=== PATIENT | male | born 1950 | race African-American/Black ===

== ENCOUNTER 2019-05-03 05:58 | Inpatient (IN) | payer MEDICARE, MEDICAID ==
[~2019-05-03] VITALS: Ht 182.9 cm; Wt 59.1 kg
[2019-05-03 06:00] VITALS: BP 101/60
[2019-05-03] MEDS ORDERED: cefTRIAXone 1 GM in NS 55 ML IVPB ONE (06:00)
[2019-05-03] MEDS ORDERED: Azithromycin 500 MG in NS 275 ML IV ONE (06:00)
[2019-05-03] MEDS ORDERED: Dexamethasone 4mg/ml vial IVP ONE (06:00)
--- NOTE | 2019-05-03 06:00 | NUR ---
ED Nurse Note: PT AAOX4, VSS, NO ACUTE DISTRESS. PT ARRIVED WITH RA 26 D/T SOB FROM HOME. PT IS ON 2L NC.
--- NOTE | 2019-05-03 06:04 | Emergency Room Report ---
History of Present Illness General Chief Complaint: Dyspnea/Respdistress Source: Patient Present Illness HPI 68-year-old male history of COPD, cancer of the right lung history of smoking, presents with shortness of breath that started about a week ago, patient endorses chest tightness cough, congestion, he has a history of pneumonia, aggravated by URI alleviated by the roots of steroids, severity is moderate, constant, patient presents via EMS. Patient has 2 L nasal cannula at home no changes but patient endorses a productive cough and subjective fever/chills Allergies: Coded Allergies: No Known Allergies (Unverified , 05/03/19) Patient History Past Medical History: see triage record Reviewed Nursing Documentation: PMH: Agreed; PSxH: Agreed Nursing Documentation-PMH Past Medical History: No History, Except For Hx Asthma: Yes - PNA Review of Systems All Other Systems: negative except mentioned in HPI Physical Exam Vital Signs Date Time Temp Pulse Resp B/P (MAP) Pulse Ox O2 Delivery O2 Flow Rate FiO2 05/03/19 05:52 97.9 52 16 106/59 (75) 99 Nasal Cannula 2.0 Sp02 EP Interpretation: reviewed, normal General Appearance: alert, cachetic, Chronically Ill Head: normocephalic, atraumatic Eyes: bilateral eye PERRL, bilateral eye EOMI ENT: uvula midline, moist mucus membranes Neck: supple, thyroid normal, supple/symm/no masses Respiratory: decreased breath sounds, accessory muscle use, wheezing Cardiovascular #1: normal peripheral pulses, regular rate, rhythm, no edema, no gallop, no murmur Gastrointestinal: non tender, soft, no guarding, no rebound Musculoskeletal: normal inspection Neurologic: alert, oriented x3 Psychiatric: mood/affect normal Skin: no rash, warm/dry Medical Decision Making Diagnostic Impression: Primary Impression: Dyspnea Qualified Codes: R06.00 - Dyspnea, unspecified Additional Impression: COPD exacerbation ER Course 68-year-old male history of COPD, right lobe with lung cancer presents with shortness of breath, cough, dyspnea concerning for possible COPD exacerbation versus obstructive pneumonia versus ACS Labs, EKG, chest x-ray, will start duo nebs, will start preemptive antibiotics, steroids Patient signed out to Dr. Cheng 6:30AM Laboratory Tests Test 05/03/19 06:00 05/03/19 06:11 White Blood Count 5.0 K/UL (4.8-10.8) Red Blood Count 5.15 M/UL (4.70-6.10) Hemoglobin 16.1 G/DL (14.2-18.0) Hematocrit 49.5 % (42.0-52.0) Mean Corpuscular Volume 96 FL (80-99) Mean Corpuscular Hemoglobin 31.2 PG (27.0-31.0) H Mean Corpuscular Hemoglobin Concent 32.5 G/DL (32.0-36.0) Red Cell Distribution Width 14.9 % (11.6-14.8) H Platelet Count 129 K/UL (150-450) L Mean Platelet Volume 5.7 FL (6.5-10.1) L Neutrophils (%) (Auto) 53.5 % (45.0-75.0) Lymphocytes (%) (Auto) 22.0 % (20.0-45.0) Monocytes (%) (Auto) 17.2 % (1.0-10.0) H Eosinophils (%) (Auto) 6.1 % (0.0-3.0) H Basophils (%) (Auto) 1.2 % (0.0-2.0) Sodium Level 142 MMOL/L (136-145) Potassium Level 4.0 MMOL/L (3.5-5.1) Chloride Level 106 MMOL/L (98-107) Carbon Dioxide Level 29 MMOL/L (21-32) Anion Gap 7 mmol/L (5-15) Blood Urea Nitrogen 14 mg/dL (7-18) Creatinine 1.1 MG/DL (0.55-1.30) Estimate Glomerular Filtration Rate > 60 mL/min (>60) Glucose Level 87 MG/DL (74-106) Lactic Acid Level 1.00 mmol/L (0.4-2.0) Calcium Level 9.0 MG/DL (8.5-10.1) Phosphorus Level 3.5 MG/DL (2.5-4.9) Magnesium Level 1.8 MG/DL (1.8-2.4) Total Bilirubin 0.7 MG/DL (0.2-1.0) Aspartate Amino Transferase (AST) 19 U/L (15-37) Alanine Aminotransferase (ALT) 21 U/L (12-78) Alkaline Phosphatase 70 U/L (46-116) Creatine Kinase MB 0.9 NG/ML (0.0-3.6) Troponin I 0.000 ng/mL (0.000-0.056) Pro-B-Type Natriuretic Peptide 71 pg/mL (0-125) Total Protein 7.3 G/DL (6.4-8.2) Albumin 3.4 G/DL (3.4-5.0) Globulin 3.9 g/dL Albumin/Globulin Ratio 0.9 (1.0-2.7) L Lipase 289 U/L (73-393) Arterial Blood pH 7.419 (7.350-7.450) Arterial Blood Partial Pressure CO2 35.8 mmHg (35.0-45.0) Arterial Blood Partial Pressure O2 80.2 mmHg (75.0-100.0) Arterial Blood HCO3 22.6 mmol/L (22.0-26.0) Arterial Blood Oxygen Saturation 95.7 % (95-100) Arterial Blood Base Excess -1.2 (-2-2) Keven Test Positive EKG Diagnostic Results EKG Time: 05:54 EP Interpretation: Sinus bradycardia, rate 56, QTc 128, no acute ST elevations , right axis dev Rhythm Strip Diag. Results Rhythm Strip Time: 06:03 EP Interpretation: yes Rate: 51 Rhythm: other - Sinus bradycardia Chest X-Ray Diagnostic Results Chest X-Ray Diagnostic Results : Chest X-Ray Ordered: Yes # of Views/Limited/Complete: 1 View Indication: Shortness of Breath EP Interpretation: Yes Interpretation: no consolidation, no effusion, no pneumothorax, no acute cardiopulmonary disease Impression: No acute disease Electronically Signed by: Willie Simmons MD Last Vital Signs Date Time Temp Pulse Resp B/P (MAP) Pulse Ox O2 Delivery O2 Flow Rate FiO2 05/03/19 05:52 97.9 52 16 106/59 (75) 99 Nasal Cannula 2.0 Disposition: ADMITTED INPATIENT Condition: Stable Willie Simmons MD May 03, 2019 06:04
--- NOTE | 2019-05-03 06:15 | NUR ---
ED Nurse Note: BLOOD WORK SET DOWN.
[2019-05-03 06:35] LABS: BASOPHILS % (AUTO) 1.2 % (0.0-2.0); EOSINOPHILS % (AUTO) 6.1 % (0.0-3.0); HEMATOCRIT 49.5 % (42.0-52.0); HEMOGLOBIN 16.1 G/DL (14.2-18.0); MEAN CORPUSCULAR VOLUME 96 FL (80-99); MONOCYTES % (AUTO) 17.2 % (1.0-10.0); NEUTROPHILS % (AUTO) 53.5 % (45.0-75.0); PLATELET COUNT 129 K/UL (150-450); RED BLOOD COUNT 5.15 M/UL (4.70-6.10); RED CELL DISTRIBUTION WIDTH 14.9 % (11.6-14.8)
[2019-05-03 06:40] LABS: ANION GAP 7 mmol/L (5-15); BLOOD UREA NITROGEN 14 mg/dL (7-18); CARBON DIOXIDE 29 MMOL/L (21-32); CHLORIDE 106 MMOL/L (98-107); CREATININE 1.1 MG/DL (0.55-1.30); SODIUM 142 MMOL/L (136-145)
--- NOTE | 2019-05-03 06:42 | NUR ---
ED Nurse Note: PT WITH RT.
[2019-05-03] MEDS: Ipratropium 0.02% Inh Soln 2.5ml UD HHN SCH ×3 (06:44→06:49)
[2019-05-03] MEDS: Albuterol ud Inhalation HHN SCH ×2 (06:48→06:49)
[2019-05-03 06:52] LABS: ALANINE AMINOTRANSFERASE 21 U/L (12-78); ALBUMIN 3.4 G/DL (3.4-5.0); ALBUMIN/GLOBULIN RATIO 0.9 (1.0-2.7); ALKALINE PHOSPHATASE 70 U/L (46-116); ASPARTATE AMINO TRANSFERASE 19 U/L (15-37); BILIRUBIN,TOTAL 0.7 MG/DL (0.2-1.0); CKMB 0.9 NG/ML (0.0-3.6); PHOSPHORUS 3.5 MG/DL (2.5-4.9)
--- NOTE | 2019-05-03 07:05 | NUR ---
HAND-OFF: Report given to TIKA FORD. PT STABLE AND ON BREATHING TX.
[2019-05-03 07:24] VITALS: BP 136/76
--- NOTE | 2019-05-03 07:26 | NUR ---
ED Nurse Note: received pt getting breathing treatment in bed. vital signs stable as documented. no acute distress noted at this time.
[2019-05-03] MEDS ORDERED: NKM (07:35)
--- NOTE | 2019-05-03 07:50 | NUR ---
ED Nurse Note: report given to Min, RN
[2019-05-03 08:00] VITALS: BP 132/72
--- NOTE | 2019-05-03 08:00 | NUR ---
ED Nurse Note: pt left unit with 2 RNs in stable condition.
--- NOTE | 2019-05-03 08:00 | NUR ---
NURSE NOTES: Received report from Jodee VILLELA. Pt transferred from ED via [facility] with 2LPM 02. No SOB noted. IV site RAC 18G SL patent and asymptomatic. Able to walk without assistance. Patient came with his own O2 tank. No c.o pain. ekg monitor applied. AOX4. Will continue to plan of care.
[2019-05-03] MEDS ORDERED: VENTOLIN HFA18 GM INH (08:15)
--- NOTE | 2019-05-03 08:40 | History and Physical ---
History of Present Illness General Date patient seen: May 03, 2019 Reason for Hospitalization: Dyspnea/Respdistress Present Illness HPI 68 year old male, poor historian with history of COPD on home oxygen , cancer of the right lung, previous history of smoking, presents with shortness of breath that started about a week ago, patient endorses chest tightness cough, congestion, he has a history of pneumonia and says that's hoe his lung CA was discovered. He had recent radiation for lung CA. He endorses a productive cough of green phlegm and subjective fever/chills. No sick contacts. No recent travel. Past Medical History: as above Past surgical history: None Social history: Unemployed, Previous heroin use, on Methadone, goes to [employer]. Occasional etoh, denies smoking cigarettes now. Uses cocaine Family history: Everyone , says parents had cancer but doesn't want to talk about it Allergies: Coded Allergies: No Known Allergies (Unverified , 05/03/19) Medication History Scheduled Methadone Hcl* (Methadone*), 60 MG ORAL DAILY, (Reported) Scheduled PRN Albuterol Sulfate (Ventolin Hfa), 1 PUFF INH EVERY 6 HOURS PRN for Shortness of Breath, (Reported) Discontinued Medications No Known Medications* (NKM - No Known Medications*), 0 ., (Reported) Discontinued Reason: Pt had allergic rxn Patient History Healthcare decision maker Resuscitation status Advanced Directive on File Review of Systems Constitutional: Reports: no symptoms, see HPI, sweats, malaise, weakness, other Eye: Denies: no symptoms, see HPI, eye pain, blurred vision, tearing, double vision, nose pain, nose congestion, acuity changes, discharge, other ENT: Denies: no symptoms, see HPI, ear pain, ear discharge, nose pain, nose congestion, throat pain, throat swelling, mouth pain, hearing loss, nasal discharge, other Respiratory: Reports: no symptoms, see HPI, orthopnea, stridor, MAI, sputum, other Cardiovascular: Denies: no symptoms, see HPI, chest pain, edema, palpitations, syncope, PND, other Gastrointestinal: Denies: no symptoms, see HPI, abdominal pain, constipation, diarrhea, nausea, vomiting, melena, hematemesis, other Genitourinary: Denies: no symptoms, see HPI, discharge, dysuria, frequency, hematuria, pain, retention, incontinence, urgency, vag bleed/dc, other Musculoskeletal: Denies: no symptoms, see HPI, back pain, gout, joint pain, joint swelling, muscle pain, muscle stiffness, other Skin: Denies: no symptoms, see HPI, rash, change in color, change in hair/nails , dryness, lesions, other Psychiatric: Denies: no symptoms, see HPI, prior hx, anxiety, depressed feelings, emotional problems, SI, HI, hallucinations, other Neurological: Denies: no symptoms, see HPI, headache, numbness, paresthesia, seizure, tingling, tremors, focal weakness, syncope, dizziness, other Endocrine: Denies: no symptoms, see HPI, excessive sweating, flushing, intolerance to temperature, increased thirst, increased urine, unexplained weight loss, other Hematologic/Lymphatic: Denies: no symptoms, see HPI, anemia, blood clots, easy bleeding, easy bruising, swollen glands, diathesis, other Physical Exam Physical Exam Narrative General Appearance: alert, cachetic, Chronically Ill, asking for methadone Head: normocephalic, atraumatic Eyes: bilateral eye PERRL, bilateral eye EOMI ENT: uvula midline, moist mucus membranes Neck: supple, thyroid normal, supple/symm/no masses Respiratory: decreased breath sounds, accessory muscle use, wheezing Cardiovascular: normal peripheral pulses, regular rate, rhythm, no edema, no gallop, no murmur Gastrointestinal: non tender, soft, no guarding, no rebound Musculoskeletal: normal inspection Neurologic: alert, oriented x3, grossly normal Psychiatric: mood/affect normal Skin: no rash, warm/dry Last 24 Hour Vital Signs Date Time Temp Pulse Resp B/P (MAP) Pulse Ox O2 Delivery O2 Flow Rate FiO2 05/03/19 08:00 98.0 68 16 126/70 99 Nasal Cannula 2.0 05/03/19 07:38 49 20 100 Nasal Cannula 2.0 44 19 100 05/03/19 07:24 98.0 68 16 136/76 99 Nasal Cannula 2.0 05/03/19 06:00 49 16 Nasal Cannula 2.0 05/03/19 06:00 98.0 16 101/60 99 Nasal Cannula 2.0 05/03/19 05:52 97.9 52 16 106/59 (75) 99 Nasal Cannula 2.0 Intake and Output 05/02/19 05/03/19 19:00 07:00 Intake Total 192.5 ml Balance 192.5 ml IV Total 192.5 ml Laboratory Tests Test 05/03/19 06:00 05/03/19 06:11 White Blood Count 5.0 K/UL (4.8-10.8) Red Blood Count 5.15 M/UL (4.70-6.10) Hemoglobin 16.1 G/DL (14.2-18.0) Hematocrit 49.5 % (42.0-52.0) Mean Corpuscular Volume 96 FL (80-99) Mean Corpuscular Hemoglobin 31.2 PG (27.0-31.0) H Mean Corpuscular Hemoglobin Concent 32.5 G/DL (32.0-36.0) Red Cell Distribution Width 14.9 % (11.6-14.8) H Platelet Count 129 K/UL (150-450) L Mean Platelet Volume 5.7 FL (6.5-10.1) L Neutrophils (%) (Auto) 53.5 % (45.0-75.0) Lymphocytes (%) (Auto) 22.0 % (20.0-45.0) Monocytes (%) (Auto) 17.2 % (1.0-10.0) H Eosinophils (%) (Auto) 6.1 % (0.0-3.0) H Basophils (%) (Auto) 1.2 % (0.0-2.0) Sodium Level 142 MMOL/L (136-145) Potassium Level 4.0 MMOL/L (3.5-5.1) Chloride Level 106 MMOL/L (98-107) Carbon Dioxide Level 29 MMOL/L (21-32) Anion Gap 7 mmol/L (5-15) Blood Urea Nitrogen 14 mg/dL (7-18) Creatinine 1.1 MG/DL (0.55-1.30) Estimat Glomerular Filtration Rate > 60 mL/min (>60) Glucose Level 87 MG/DL (74-106) Lactic Acid Level 1.00 mmol/L (0.4-2.0) Calcium Level 9.0 MG/DL (8.5-10.1) Phosphorus Level 3.5 MG/DL (2.5-4.9) Magnesium Level 1.8 MG/DL (1.8-2.4) Total Bilirubin 0.7 MG/DL (0.2-1.0) Aspartate Amino Transf (AST/SGOT) 19 U/L (15-37) Alanine Aminotransferase (ALT/SGPT) 21 U/L (12-78) Alkaline Phosphatase 70 U/L (46-116) Creatine Kinase MB 0.9 NG/ML (0.0-3.6) Troponin I 0.000 ng/mL (0.000-0.056) Pro-B-Type Natriuretic Peptide 71 pg/mL (0-125) Total Protein 7.3 G/DL (6.4-8.2) Albumin 3.4 G/DL (3.4-5.0) Globulin 3.9 g/dL Albumin/Globulin Ratio 0.9 (1.0-2.7) L Lipase 289 U/L (73-393) Arterial Blood pH 7.419 (7.350-7.450) Arterial Blood Partial Pressure CO2 35.8 mmHg (35.0-45.0) Arterial Blood Partial Pressure O2 80.2 mmHg (75.0-100.0) Arterial Blood HCO3 22.6 mmol/L (22.0-26.0) Arterial Blood Oxygen Saturation 95.7 % (95-100) Arterial Blood Base Excess -1.2 (-2-2) Keven Test Positive Microbiology Date/Time Source Procedure Growth Status 05/03/19 06:45 Nasal Nares - Final Complete 05/03/19 06:45 Nasal Nares - Final Complete Height (Feet): 6 Weight (Pounds): 140 Medications Current Medications Medications (Trade) Dose Ordered Sig/Katherine Route PRN Reason Start Time Stop Time Status Last Admin Dose Admin Albuterol/ Ipratropium (Albuterol/ Ipratropium) 3 ml Q4HRT HHN 05/03/19 11:00 05/08/19 10:59 Azithromycin 500 mg/Dextrose 275 ml @ 275 mls/hr Q24HRS IV 05/04/19 06:00 05/10/19 06:59 Ceftriaxone Sodium 1 gm/ Dextrose 55 ml @ 110 mls/hr Q24H IVPB 05/03/19 08:30 05/10/19 08:29 UNV Heparin Sodium (Porcine) (Heparin 5000 units/ml) 5,000 units EVERY 12 HOURS SUBQ 05/03/19 09:00 06/02/19 08:59 UNV Methylprednisolone Sodium Succinate (Solu-MEDROL) 60 mg EVERY 6 HOURS IVP 05/03/19 12:00 06/02/19 11:59 Objective Narrative ECG tracing personally reviewed by me: Sinus bradycardia, rate 56, QTc 128, no acute ST elevations, right axis deviation CXR: COPD, no acute pathology Assessment/Plan Problem List: (1) COPD exacerbation ICD Codes: J44.1 - Chronic obstructive pulmonary disease with (acute) exacerbation SNOMED: 268535995 (2) Dyspnea ICD Codes: R06.00 - Dyspnea, unspecified SNOMED: 007871569 Qualifiers: Qualified Codes: R06.00 - Dyspnea, unspecified (3) Dependence on cocaine-type drug ICD Codes: F14.20 - Cocaine dependence, uncomplicated SNOMED: 149809716 (4) Thrombocytopenia ICD Codes: D69.6 - Thrombocytopenia, unspecified SNOMED: 384742213 (5) Methadone dependence ICD Codes: F11.20 - Opioid dependence, uncomplicated SNOMED: 684182330 Status: stable Assessment/Plan: 68 year old male with history of COPD on home oxygen, lung CA admitted for COPD exacerbation. Viral vs. bacterial bronchitis IV solumedrol 60 mg q 6hr, taper per clinical response IV ceftriaxone 1g q24hr (05/03-), IV Azithromycin 500mg daily (05/03-) Duonebs Oxygen via nc Methadone 60mg daily pulmonology consult patient counselled regarding cocaine use Thrombocytopenia- Monitor VTE ppx: Heparin subq GI ppx: PPI Disposition: Home I spent 70 minutes on this encounter. >50% spent on counselling and care coordination. I spent an additional 31 minutes in reviewing old records and discussing patient's care with consultants. Time of note may not reflect time of encounter Jacob Cohen M.D. May 03, 2019 08:40
[2019-05-03] MEDS ORDERED: Heparin 5000 units/ml inj SUBQ SCH (09:00)
--- NOTE | 2019-05-03 09:15 | Pulmonology Progress Note ---
Assessment/Plan Assessment/Plan Pulmonary Consultation HPI Patient is a 68 year old man with past medical history of COPD, right sided Lung Cancer, previous Pneumonia previous smoking history, admitted with worsening shortness of breath for a week ago, chest tightness, minimally productive cough, congestion, fever and chills following a recent URTI. Patient is on home oxygen ( 2 L/min) Allergies: No Known Allergies Past Medical History: COPD/Asthma, right sided Lung Cancer, previous Pneumonia All Other Systems: negative except mentioned in HPI Physical Exam Vital Signs Noted Date Time Temp Pulse Resp B/P (MAP) Pulse Ox O2 Delivery O2 Flow Rate FiO2 05/03/19 05:52 97.9 52 16 106/59 (75) 99 Nasal Cannula 2.0 General Appearance: alert, Chronically Ill appearing, some wasting Head: normocephalic, atraumatic Eyes: bilateral eye PERRL, bilateral eye EOMI ENT: uvula midline, moist mucus membranes Neck: supple, thyroid normal, supple/symm/no masses Respiratory: decreased breath sounds, wheezing Cardiovascular: normal peripheral pulses, regular rate, rhythm, no edema, no gallop, no murmur Gastrointestinal: non tender, soft, no guarding, no rebound Musculoskeletal: normal inspection Neurologic: alert, oriented x3, no focal signs Skin: no rash, warm/dry Impression: COPD exacerbation Chest Infection - viral vs bacterial bronchitis Right sided Lung Cancer history Previous Pneumonia Plan: - IV Antibiotics - IV Solumedrol - O2 PRN - HHN Q4 - PTAmedications - PPX - Monitor labs Laboratory Tests Noted Test 05/03/19 06:00 05/03/19 06:11 White Blood Count 5.0 K/UL (4.8-10.8) Red Blood Count 5.15 M/UL (4.70-6.10) Hemoglobin 16.1 G/DL (14.2-18.0) Hematocrit 49.5 % (42.0-52.0) Mean Corpuscular Volume 96 FL (80-99) Mean Corpuscular Hemoglobin 31.2 PG (27.0-31.0) H Mean Corpuscular Hemoglobin Concent 32.5 G/DL (32.0-36.0) Red Cell Distribution Width 14.9 % (11.6-14.8) H Platelet Count 129 K/UL (150-450) L Mean Platelet Volume 5.7 FL (6.5-10.1) L Neutrophils (%) (Auto) 53.5 % (45.0-75.0) Lymphocytes (%) (Auto) 22.0 % (20.0-45.0) Monocytes (%) (Auto) 17.2 % (1.0-10.0) H Eosinophils (%) (Auto) 6.1 % (0.0-3.0) H Basophils (%) (Auto) 1.2 % (0.0-2.0) Sodium Level 142 MMOL/L (136-145) Potassium Level 4.0 MMOL/L (3.5-5.1) Chloride Level 106 MMOL/L (98-107) Carbon Dioxide Level 29 MMOL/L (21-32) Anion Gap 7 mmol/L (5-15) Blood Urea Nitrogen 14 mg/dL (7-18) Creatinine 1.1 MG/DL (0.55-1.30) Estimate Glomerular Filtration Rate > 60 mL/min (>60) Glucose Level 87 MG/DL (74-106) Lactic Acid Level 1.00 mmol/L (0.4-2.0) Calcium Level 9.0 MG/DL (8.5-10.1) Phosphorus Level 3.5 MG/DL (2.5-4.9) Magnesium Level 1.8 MG/DL (1.8-2.4) Total Bilirubin 0.7 MG/DL (0.2-1.0) Aspartate Amino Transferase (AST) 19 U/L (15-37) Alanine Aminotransferase (ALT) 21 U/L (12-78) Alkaline Phosphatase 70 U/L (46-116) Creatine Kinase MB 0.9 NG/ML (0.0-3.6) Troponin I 0.000 ng/mL (0.000-0.056) Pro-B-Type Natriuretic Peptide 71 pg/mL (0-125) Total Protein 7.3 G/DL (6.4-8.2) Albumin 3.4 G/DL (3.4-5.0) Globulin 3.9 g/dL Albumin/Globulin Ratio 0.9 (1.0-2.7) L Lipase 289 U/L (73-393) Arterial Blood pH 7.419 (7.350-7.450) Arterial Blood Partial Pressure CO2 35.8 mmHg (35.0-45.0) Arterial Blood Partial Pressure O2 80.2 mmHg (75.0-100.0) Arterial Blood HCO3 22.6 mmol/L (22.0-26.0) Arterial Blood Oxygen Saturation 95.7 % (95-100) Arterial Blood Base Excess -1.2 (-2-2) Keven Test Positive EKG: Sinus bradycardia, rate 56, QTc 128, no acute ST elevations, right axis deviation Chest X-Ray: no consolidation, no effusion, no pneumothorax, no acute cardiopulmonary disease Subjective ROS Limited/Unobtainable: No Allergies: Coded Allergies: No Known Allergies (Unverified , 05/03/19) Objective Last 24 Hour Vital Signs Date Time Temp Pulse Resp B/P (MAP) Pulse Ox O2 Delivery O2 Flow Rate FiO2 05/03/19 08:00 98.0 68 16 126/70 99 Nasal Cannula 2.0 05/03/19 07:38 49 20 100 Nasal Cannula 2.0 44 19 100 05/03/19 07:24 98.0 68 16 136/76 99 Nasal Cannula 2.0 05/03/19 06:00 49 16 Nasal Cannula 2.0 05/03/19 06:00 98.0 16 101/60 99 Nasal Cannula 2.0 05/03/19 05:52 97.9 52 16 106/59 (75) 99 Nasal Cannula 2.0 Intake and Output 05/02/19 05/03/19 19:00 07:00 Intake Total 192.5 ml Balance 192.5 ml IV Total 192.5 ml Microbiology Date/Time Source Procedure Growth Status 05/03/19 06:45 Nasal Nares - Final Complete 05/03/19 06:45 Nasal Nares - Final Complete Laboratory Tests 05/03/19 06:00: White Blood Count 5.0, Red Blood Count 5.15, Hemoglobin 16.1, Hematocrit 49.5, Mean Corpuscular Volume 96, Mean Corpuscular Hemoglobin 31.2H, Mean Corpuscular Hemoglobin Concent 32.5, Red Cell Distribution Width 14.9H, Platelet Count 129L , Mean Platelet Volume 5.7L, Neutrophils (%) (Auto) 53.5, Lymphocytes (%) (Auto ) 22.0, Monocytes (%) (Auto) 17.2H, Eosinophils (%) (Auto) 6.1H, Basophils (%) ( Auto) 1.2, Sodium Level 142, Potassium Level 4.0, Chloride Level 106, Carbon Dioxide Level 29, Anion Gap 7, Blood Urea Nitrogen 14, Creatinine 1.1, Estimat Glomerular Filtration Rate > 60, Glucose Level 87, Lactic Acid Level 1.00, Calcium Level 9.0, Phosphorus Level 3.5, Magnesium Level 1.8, Total Bilirubin 0.7, Aspartate Amino Transf (AST/SGOT) 19, Alanine Aminotransferase (ALT/SGPT) 21, Alkaline Phosphatase 70, Creatine Kinase MB 0.9, Troponin I 0.000, Pro-B- Type Natriuretic Peptide 71, Total Protein 7.3, Albumin 3.4, Globulin 3.9, Albumin/Globulin Ratio 0.9L, Lipase 289 05/03/19 06:11: Arterial Blood pH 7.419, Arterial Blood Partial Pressure CO2 35.8, Arterial Blood Partial Pressure O2 80.2, Arterial Blood HCO3 22.6, Arterial Blood Oxygen Saturation 95.7, Arterial Blood Base Excess -1.2, Keven Test Positive Current Medications Medications (Trade) Dose Ordered Sig/Katherine Route PRN Reason Start Time Stop Time Status Last Admin Dose Admin Albuterol/ Ipratropium (Albuterol/ Ipratropium) 3 ml Q4HRT HHN 05/03/19 11:00 05/08/19 10:59 Azithromycin 500 mg/Dextrose 275 ml @ 275 mls/hr Q24HRS IV 05/04/19 06:00 05/10/19 06:59 Ceftriaxone Sodium 1 gm/ Dextrose 55 ml @ 110 mls/hr Q24H IVPB 05/04/19 09:00 05/11/19 08:59 Heparin Sodium (Porcine) (Heparin 5000 units/ml) 5,000 units EVERY 12 HOURS SUBQ 05/03/19 09:00 06/02/19 08:59 Methylprednisolone Sodium Succinate (Solu-MEDROL) 60 mg EVERY 6 HOURS IVP 05/03/19 12:00 06/02/19 11:59 Boston Singh MD May 03, 2019 09:15
[2019-05-03] MEDS ORDERED: METHADONE HCL10 MG ORAL (10:20)
--- NOTE | 2019-05-03 11:20 | Diagnostic Imaging Report ---
Indication: Cough Technique: One view of the chest Comparison: none Findings: Normal heart size. The lungs are hyperinflated. The lungs are clear. No infiltrates, effusions, congestion. The pleural spaces are clear. Impression: Evidence of COPD. No acute process
[2019-05-03 12:00] VITALS: BP_SYST 108; BP_SYST 135; BP_DIAS 63; BP_DIAS 73
[2019-05-03] MEDS ORDERED: Solu-MEDROL 125mg Inj IVP SCH (12:00)
[2019-05-03] MEDS: Albuterol/Ipratropium 3ml neb HHN SCH ×4 (12:05→23:00)
[2019-05-03 16:00] VITALS: BP 101/61
--- NOTE | 2019-05-03 17:50 | NUR ---
NURSE NOTES: Received patient from RN Min, awake, alert and oriented x 4. Ambulatory with steady gait. With O2 via NC at 2LPM, no SOB or cardiac distress. IV line intact and patent, no s/s of infiltration. Due meds given. HOB elevated. Bed locked in lowest position. Will continue plan of care.
--- NOTE | 2019-05-03 17:55 | NUR ---
HAND-OFF: Report given to Pam RN. Pt remains stable.
[2019-05-03] MEDS: Solu-MEDROL 125mg Inj IVP SCH ×2 (18:08→23:27)
--- NOTE | 2019-05-03 19:07 | NUR ---
HAND-OFF: Report given to Marilee.
--- NOTE | 2019-05-03 19:15 | NUR ---
NURSE NOTES: Received report from TIKA Orozco. AAO x 4, NC 2L/min. IV site intact and patent. No acute distress noted at this time. No c/o pain. Bed locked, lowest position, alarm on, call light within reach. Will continue to monitor.
[2019-05-03 20:00] VITALS: BP 132/77
[2019-05-03] MEDS: Heparin 5000 units/ml inj SUBQ SCH (21:00)
[2019-05-04] VITALS: BP 104/55
[2019-05-04] MEDS: Albuterol/Ipratropium 3ml neb HHN SCH ×6 (03:21→23:22)
[2019-05-04 04:00] VITALS: BP 128/78
[2019-05-04] MEDS: Solu-MEDROL 125mg Inj IVP SCH (05:35)
[2019-05-04] MEDS ORDERED: Azithromycin 500 MG in D5W 275 ML IV SCH (06:00)
[2019-05-04] MEDS: Azithromycin 500 MG in D5W 275 ML IV SCH (06:05)
--- NOTE | 2019-05-04 07:14 | NUR ---
HAND-OFF: Report given to TIKA Mead.
--- NOTE | 2019-05-04 07:35 | NUR ---
NURSE NOTES: Received patient on bed, awake. IV site intact and patent. Bed in low and locked position, call light in reach. No signs of respiratory distress, patient denies pain. Room board updated, will continue to monitor.
[2019-05-04 08:00] VITALS: BP 129/68
[2019-05-04 08:16] LABS: HEMATOCRIT 43.5 % (42.0-52.0); HEMOGLOBIN 14.3 G/DL (14.2-18.0); MEAN CORPUSCULAR VOLUME 98 FL (80-99); PLATELET COUNT 133 K/UL (150-450); RED BLOOD COUNT 4.45 M/UL (4.70-6.10); RED CELL DISTRIBUTION WIDTH 14.9 % (11.6-14.8); WHITE BLOOD COUNT 7.9 K/UL (4.8-10.8)
[2019-05-04 08:34] LABS: ANION GAP 10 mmol/L (5-15); BLOOD UREA NITROGEN 18 mg/dL (7-18); CALCIUM 9.1 MG/DL (8.5-10.1); CARBON DIOXIDE 26 MMOL/L (21-32); CHLORIDE 103 MMOL/L (98-107); CREATININE 1.1 MG/DL (0.55-1.30); POTASSIUM 4.1 MMOL/L (3.5-5.1); SODIUM 139 MMOL/L (136-145)
[2019-05-04] MEDS: Heparin 5000 units/ml inj SUBQ SCH ×2 (08:53→20:21)
[2019-05-04] MEDS ORDERED: cefTRIAXone 1 GM in D5W 55 ML IVPB SCH (09:00)
--- NOTE | 2019-05-04 09:18 | General Progress Note ---
Assessment/Plan Problem List: (1) COPD exacerbation ICD Codes: J44.1 - Chronic obstructive pulmonary disease with (acute) exacerbation SNOMED: 000005556 (2) Dyspnea ICD Codes: R06.00 - Dyspnea, unspecified SNOMED: 656647214 Qualifiers: Qualified Codes: R06.00 - Dyspnea, unspecified (3) Dependence on cocaine-type drug ICD Codes: F14.20 - Cocaine dependence, uncomplicated SNOMED: 976369011 (4) Thrombocytopenia ICD Codes: D69.6 - Thrombocytopenia, unspecified SNOMED: 395016413 (5) Methadone dependence ICD Codes: F11.20 - Opioid dependence, uncomplicated SNOMED: 659069178 Status: stable Assessment/Plan: 68 year old male with history of COPD on home oxygen, lung CA admitted for COPD exacerbation. Viral vs. bacterial bronchitis IV solumedrol 60 mg q 6hr, taper today to 40 q12 IV ceftriaxone 1g q24hr (05/03-), IV Azithromycin 500mg daily (05/03-) Duonebs Oxygen via nc Methadone 60mg daily - home dose pulmonology consult appreciated patient counselled regarding cocaine use Thrombocytopenia- Monitor Hyperglycemia- steroid induced, continue to monitor VTE ppx: Heparin subq GI ppx: PPI Disposition: Home I spent 40 minutes on this encounter. >50% spent on counselling and care coordination. Time of note may not reflect time of encounter Subjective Date patient seen: May 04, 2019 ROS Limited/Unobtainable: No Constitutional: Denies: no symptoms, chills, diaphoresis, fever, malaise, weakness, other HEENT: Denies: no symptoms, eye pain, blurred vision, tearing, double vision, ear pain, ear discharge, nose pain, nose congestion, throat pain, throat swelling, mouth pain, mouth swelling, other Cardiovascular: Denies: no symptoms, chest pain, edema, irregular heart rate, lightheadedness, palpitations, syncope, other Respiratory: Denies: no symptoms, cough, orthopnea, shortness of breath, SOB with excertion, SOB at rest, sputum, stridor, wheezing, other Gastrointestinal/Abdominal: Denies: no symptoms, abdomen distended, abdominal pain, black stools, tarry stools, blood in stool, constipated, diarrhea, difficulty swallowing, nausea, poor appetite, poor fluid intake, rectal bleeding , vomiting, other Genitourinary: Denies: no symptoms, burning, discharge, frequency, flank pain, hematuria, incontinence, pain, urgency, other Neurologic/Psychiatric: Denies: no symptoms, anxiety, depressed, emotional problems, headache, numbness, paresthesia, pre-existing deficit, seizure, tingling, tremors, weakness, other Endocrine: Denies: no symptoms, excessive sweating, flushing, intolerance to cold, intolerance to heat, increased hunger, increased thirst, increased urine, unexplained weight gain, unexplained weight loss, other Hematologic/Lymphatic: Denies: no symptoms, anemia, easy bleeding, easy bruising, other Allergies: Coded Allergies: No Known Allergies (Unverified , 05/03/19) Subjective feels much better. Asking for sleeping medications at night. some hyperglycemia related to steroid use. Asking if he could go home tomorrow. Denies cp, sob, palps. Objective Last 24 Hour Vital Signs Date Time Temp Pulse Resp B/P (MAP) Pulse Ox O2 Delivery O2 Flow Rate FiO2 05/04/19 09:07 Nasal Cannula 2.0 05/04/19 09:01 Nasal Cannula 2.0 05/04/19 07:11 80 20 99 Nasal Cannula 2.0 28 78 20 97 05/04/19 04:00 97.3 85 18 128/78 (95) 98 05/04/19 04:00 2.0 05/04/19 03:21 77 18 100 Nasal Cannula 2.0 28 71 18 98 05/04/19 00:00 97.6 91 18 104/55 (71) 96 05/03/19 23:32 74 16 99 Nasal Cannula 2.0 28 77 16 97 05/03/19 21:00 Nasal Cannula 2.0 05/03/19 20:02 74 18 100 Nasal Cannula 2.0 28 72 16 96 05/03/19 20:00 2.0 05/03/19 20:00 97.6 79 18 132/77 (95) 94 05/03/19 16:00 2.0 05/03/19 16:00 79 05/03/19 16:00 97.3 71 20 101/61 (74) 96 05/03/19 15:44 64 18 98 Nasal Cannula 2.0 28 69 18 90 05/03/19 12:05 49 20 100 Nasal Cannula 2.0 44 19 100 05/03/19 12:00 98.2 80 20 108/63 (78) 98 05/03/19 12:00 62 05/03/19 12:00 2.0 Intake and Output 05/03/19 05/04/19 19:00 07:00 Intake Total 2047.5 ml 480 ml Output Total 1000 ml Balance 1047.5 ml 480 ml Intake Oral 910 ml 480 ml IV Total 1137.5 ml Output Urine Total 1000 ml # Voids 3 Laboratory Tests 05/04/19 06:50: White Blood Count 7.9#, Red Blood Count 4.45L, Hemoglobin 14.3, Hematocrit 43.5 , Mean Corpuscular Volume 98, Mean Corpuscular Hemoglobin 32.1H, Mean Corpuscular Hemoglobin Concent 32.9, Red Cell Distribution Width 14.9H, Platelet Count 133L, Mean Platelet Volume 4.9L, Neutrophils (%) (Auto) , Lymphocytes (%) (Auto) , Monocytes (%) (Auto) , Eosinophils (%) (Auto) , Basophils (%) (Auto) , Neutrophils % (Manual) [Pending], Lymphocytes % (Manual) [Pending], Platelet Estimate [Pending], Platelet Morphology [Pending], Sodium Level 139, Potassium Level 4.1, Chloride Level 103, Carbon Dioxide Level 26, Anion Gap 10, Blood Urea Nitrogen 18, Creatinine 1.1, Estimat Glomerular Filtration Rate > 60, Glucose Level 211#H, Calcium Level 9.1 Height (Feet): 6 Height (Inches): 0.00 Weight (Pounds): 130 Objective General Appearance: alert, cachetic, Chronically Ill, no distress Head: normocephalic, atraumatic Eyes: bilateral eye PERRL, bilateral eye EOMI ENT: uvula midline, moist mucus membranes Neck: supple, thyroid normal, supple/symm/no masses Respiratory: cta bl, no wheezing, no rale, speaks full sentences Cardiovascular: normal peripheral pulses, regular rate, rhythm, no edema, no gallop, no murmur Gastrointestinal: non tender, soft, no guarding, no rebound Musculoskeletal: normal inspection Neurologic: alert, oriented x3, grossly normal Psychiatric: mood/affect normal Skin: no rash, warm/dry Jacob Cohen M.D. May 04, 2019 09:18
[2019-05-04] MEDS: cefTRIAXone 1 GM in D5W 55 ML IVPB SCH (09:44)
[2019-05-04 12:00] VITALS: BP 124/79
--- NOTE | 2019-05-04 13:22 | CDS Physician Query ---
Dear Dr. Jacob Cohen Date: 05/04/2019 Health Safety And Environment Manager/CDS Name: Jacqueline Engel Clarification is required for compliance, coding accuracy, and to reflect severity of illness for this patient Clinical Documentation states:HNP: 68 year old male, poor historian with history of COPD on home oxygen , cancer of the right lung, previous history of smoking, presents with shortness of breath that started about a week ago... General Appearance: alert, cachetic, Chronically Ill BMI 17.7 Labs: Albumin 3.4, Albumin/Globulin Ratio 0.9 Please select the most appropriate option: [] Protein/Calorie Malnutrition [x] Mild [] Moderate [] Severe [] Hypoalbuminemia [] Cachexia [] Underweight [] Intestinal malabsorption [] Other [] Unable to determine [] Not Applicable Present on Admission: [x] Yes [] No [] Clinically Undetermined _jacob cohen 05/06/2019 Physician signature Date Please also document in your Progress Notes and/or Discharge Summary and indicate if the condition was present on admission. MTDD
--- NOTE | 2019-05-04 15:28 | NUR ---
RD ASSESSMENT & RECOMMENDATIONS SEE CARE ACTIVITY FOR COMPLETE ASSESSMENT DAILY ESTIMATED NEEDS: Needs based on Underweight, CA, COPD/ 60kg 30-40 kcals/kg 6027-9540 total kcals 1-1.5 g protein/kg 60-90 g total protein 25-30 mL/kg 1500-800 total fluid mLs NUTRITION DIAGNOSIS: Increased kcal/prot needs R/T underweight status, catabolic dx, clinical condition as evidenced by pt @ 74% IBW w/ low BMI per guidelines, h/o lung CA and COPD dx. CURRENT DIET:REGULAR + Ensure Enlive TID PO DIET RECOMMENDATIONS: REGULAR/ texture as tolerated ADDITIONAL RECOMMENDATIONS: * Standing weight for accurate CBW -> weekly wt monitoring * Continue Ensure Enlive TID w/ meals (350kcal/20g prot per bottle) -> rec to change to Glucerna TID if BGs remain elev * Monitor BGs closely while on Solumedrol * Snacks BID in b/w meals
[2019-05-04 16:00] VITALS: BP 122/58
--- NOTE | 2019-05-04 19:21 | NUR ---
CASE MANAGEMENT: REVIEW 68Y/MALE PRESENTED TO ED CC: SOB SI: COPD EXACERBATION T 97.9 HR 44 RR 16 BP 106/59 SAT 99% NC/2L MONO 17.2 EOS 6.1 IS: NS IVF BOLUS X1 DECADRON IV X1 AZITHROMYCIN IV X1 CEFTRIAXONE IV X1 PATIENT ADMITTED TO MED/SURG UNIT 05/03/2019 DCP: PATIENT IS FROM HOME
--- NOTE | 2019-05-04 19:32 | NUR ---
HAND-OFF: Report given to TIKA Tavares.
[2019-05-04 20:00] VITALS: BP 128/62
[2019-05-04] MEDS: Solu-MEDROL 40mg Inj IVP SCH (20:17)
[2019-05-04] MEDS ORDERED: Zolpidem 5mg tab ORAL SCH (21:00)
--- NOTE | 2019-05-04 21:51 | Pulmonology Progress Note ---
Assessment/Plan Assessment/Plan Pulmonary Progress Note HPI Patient is a 68 year old man with past medical history of COPD, right sided Lung Cancer, previous Pneumonia previous smoking history, admitted with worsening shortness of breath for a week ago, chest tightness, minimally productive cough, congestion, fever and chills following a recent URTI. Patient is on home oxygen ( 2 L/min) Allergies: No Known Allergies Past Medical History: COPD/Asthma, right sided Lung Cancer, previous Pneumonia No new complaints, less SOB Physical Exam Vital Signs Noted General Appearance: alert, Chronically Ill appearing, some wasting Head: normocephalic, atraumatic Eyes: bilateral eye PERRL, bilateral eye EOMI ENT: uvula midline, moist mucus membranes Neck: supple, thyroid normal, supple/symm/no masses Respiratory: decreased breath sounds, wheezing Cardiovascular: normal peripheral pulses, regular rate, rhythm, no edema, no gallop, no murmur Gastrointestinal: non tender, soft, no guarding, no rebound Musculoskeletal: normal inspection Neurologic: alert, oriented x3, no focal signs Skin: no rash, warm/dry Impression: COPD exacerbation Chest Infection - viral vs bacterial bronchitis Right sided Lung Cancer history Previous Pneumonia Plan: - IV Antibiotics - IV Solumedrol - O2 PRN - HHN Q4 - PTAmedications - PPX - Monitor labs Laboratory Tests Noted Test 05/03/19 06:00 05/03/19 06:11 White Blood Count 5.0 K/UL (4.8-10.8) Red Blood Count 5.15 M/UL (4.70-6.10) Hemoglobin 16.1 G/DL (14.2-18.0) Hematocrit 49.5 % (42.0-52.0) Mean Corpuscular Volume 96 FL (80-99) Mean Corpuscular Hemoglobin 31.2 PG (27.0-31.0) H Mean Corpuscular Hemoglobin Concent 32.5 G/DL (32.0-36.0) Red Cell Distribution Width 14.9 % (11.6-14.8) H Platelet Count 129 K/UL (150-450) L Mean Platelet Volume 5.7 FL (6.5-10.1) L Neutrophils (%) (Auto) 53.5 % (45.0-75.0) Lymphocytes (%) (Auto) 22.0 % (20.0-45.0) Monocytes (%) (Auto) 17.2 % (1.0-10.0) H Eosinophils (%) (Auto) 6.1 % (0.0-3.0) H Basophils (%) (Auto) 1.2 % (0.0-2.0) Sodium Level 142 MMOL/L (136-145) Potassium Level 4.0 MMOL/L (3.5-5.1) Chloride Level 106 MMOL/L (98-107) Carbon Dioxide Level 29 MMOL/L (21-32) Anion Gap 7 mmol/L (5-15) Blood Urea Nitrogen 14 mg/dL (7-18) Creatinine 1.1 MG/DL (0.55-1.30) Estimate Glomerular Filtration Rate > 60 mL/min (>60) Glucose Level 87 MG/DL (74-106) Lactic Acid Level 1.00 mmol/L (0.4-2.0) Calcium Level 9.0 MG/DL (8.5-10.1) Phosphorus Level 3.5 MG/DL (2.5-4.9) Magnesium Level 1.8 MG/DL (1.8-2.4) Total Bilirubin 0.7 MG/DL (0.2-1.0) Aspartate Amino Transferase (AST) 19 U/L (15-37) Alanine Aminotransferase (ALT) 21 U/L (12-78) Alkaline Phosphatase 70 U/L (46-116) Creatine Kinase MB 0.9 NG/ML (0.0-3.6) Troponin I 0.000 ng/mL (0.000-0.056) Pro-B-Type Natriuretic Peptide 71 pg/mL (0-125) Total Protein 7.3 G/DL (6.4-8.2) Albumin 3.4 G/DL (3.4-5.0) Globulin 3.9 g/dL Albumin/Globulin Ratio 0.9 (1.0-2.7) L Lipase 289 U/L (73-393) Arterial Blood pH 7.419 (7.350-7.450) Arterial Blood Partial Pressure CO2 35.8 mmHg (35.0-45.0) Arterial Blood Partial Pressure O2 80.2 mmHg (75.0-100.0) Arterial Blood HCO3 22.6 mmol/L (22.0-26.0) Arterial Blood Oxygen Saturation 95.7 % (95-100) Arterial Blood Base Excess -1.2 (-2-2) Keven Test Positive EKG: Sinus bradycardia, rate 56, QTc 128, no acute ST elevations, right axis deviation Chest X-Ray: no consolidation, no effusion, no pneumothorax, no acute cardiopulmonary disease Subjective ROS Limited/Unobtainable: No Allergies: Coded Allergies: No Known Allergies (Unverified , 05/03/19) Objective Last 24 Hour Vital Signs Date Time Temp Pulse Resp B/P (MAP) Pulse Ox O2 Delivery O2 Flow Rate FiO2 05/04/19 19:04 75 18 99 Nasal Cannula 2.0 28 05/04/19 18:54 71 18 94 Nasal Cannula 2.0 28 05/04/19 18:54 94 Nasal Cannula 2.0 28 05/04/19 16:00 97.7 83 21 122/58 (79) 99 05/04/19 15:13 72 20 99 Nasal Cannula 2.0 28 70 20 97 05/04/19 12:00 97.5 79 18 124/79 (94) 94 05/04/19 10:28 70 20 98 Nasal Cannula 2.0 28 68 20 97 05/04/19 09:07 Nasal Cannula 2.0 05/04/19 09:01 Nasal Cannula 2.0 05/04/19 08:00 97.3 75 18 129/68 (88) 97 05/04/19 07:11 80 20 99 Nasal Cannula 2.0 28 78 20 97 05/04/19 04:00 97.3 85 18 128/78 (95) 98 05/04/19 04:00 2.0 05/04/19 03:21 77 18 100 Nasal Cannula 2.0 28 71 18 98 05/04/19 00:00 97.6 91 18 104/55 (71) 96 05/03/19 23:32 74 16 99 Nasal Cannula 2.0 28 77 16 97 Intake and Output 05/03/19 05/04/19 19:00 07:00 Intake Total 2047.5 ml 480 ml Output Total 1000 ml Balance 1047.5 ml 480 ml Intake Oral 910 ml 480 ml IV Total 1137.5 ml Output Urine Total 1000 ml # Voids 3 Microbiology Date/Time Source Procedure Growth Status 05/03/19 06:45 Nasal Nares - Final Complete 05/03/19 06:45 Nasal Nares - Final Complete Laboratory Tests 05/04/19 06:50: White Blood Count 7.9#, Red Blood Count 4.45L, Hemoglobin 14.3, Hematocrit 43.5 , Mean Corpuscular Volume 98, Mean Corpuscular Hemoglobin 32.1H, Mean Corpuscular Hemoglobin Concent 32.9, Red Cell Distribution Width 14.9H, Platelet Count 133L, Mean Platelet Volume 4.9L, Neutrophils (%) (Auto) , Lymphocytes (%) (Auto) , Monocytes (%) (Auto) , Eosinophils (%) (Auto) , Basophils (%) (Auto) , Differential Total Cells Counted 100, Neutrophils % ( Manual) 92H, Lymphocytes % (Manual) 5L, Monocytes % (Manual) 3, Eosinophils % ( Manual) 0, Basophils % (Manual) 0, Band Neutrophils 0, Platelet Estimate DecreasedL, Platelet Morphology Normal, Sodium Level 139, Potassium Level 4.1, Chloride Level 103, Carbon Dioxide Level 26, Anion Gap 10, Blood Urea Nitrogen 18, Creatinine 1.1, Estimat Glomerular Filtration Rate > 60, Glucose Level 211#H , Calcium Level 9.1 Current Medications Medications (Trade) Dose Ordered Sig/Katherine Route PRN Reason Start Time Stop Time Status Last Admin Dose Admin Albuterol/ Ipratropium (Albuterol/ Ipratropium) 3 ml Q4HRT HHN 05/03/19 19:00 05/08/19 10:59 05/04/19 18:54 Azithromycin 500 mg/Dextrose 275 ml @ 275 mls/hr Q24HRS IV 05/04/19 06:00 05/10/19 06:59 05/04/19 06:05 Ceftriaxone Sodium 1 gm/ Dextrose 55 ml @ 110 mls/hr Q24H IVPB 05/04/19 09:00 05/11/19 08:59 05/04/19 09:44 Heparin Sodium (Porcine) (Heparin 5000 units/ml) 5,000 units EVERY 12 HOURS SUBQ 05/03/19 21:00 06/02/19 08:59 05/04/19 20:21 Methadone HCl (Methadone HCl) 60 mg DAILY ORAL 05/05/19 09:00 05/12/19 08:59 Methylprednisolone Sodium Succinate (Solu-MEDROL) 40 mg Q12HR IVP 05/04/19 21:00 06/03/19 20:59 05/04/19 20:17 Pantoprazole (Protonix) 40 mg DAILY ORAL 05/04/19 09:00 06/02/19 13:59 05/04/19 08:52 Zolpidem Tartrate (Ambien) 5 mg HSPRN ORAL 05/04/19 21:00 05/04/19 23:00 05/04/19 20:18 Boston Singh MD May 04, 2019 21:51
[2019-05-05] VITALS: BP 144/73
[2019-05-05] MEDS: Albuterol/Ipratropium 3ml neb HHN SCH ×3 (03:25→11:25)
[2019-05-05 04:00] VITALS: BP 122/78
[2019-05-05] MEDS: Azithromycin 500 MG in D5W 275 ML IV SCH (05:48)
--- NOTE | 2019-05-05 07:50 | NUR ---
HAND-OFF: Report given to paty VILLELA.
[2019-05-05 08:00] VITALS: BP 124/68
--- NOTE | 2019-05-05 08:01 | NUR ---
NURSE NOTES: received report from TIKA Tavares. patient in bed. alert. oriented. verbally responsive. no respiratory distress noted. witn 2l via NC. C/O pain on IV site on LFA. second shift supervisor RN Janee will insert new IV. skin intact. no isolation. ambulatory. bed in the lowest position. call light within reach. will continue to provide plan of care.
[2019-05-05] MEDS: Solu-MEDROL 40mg Inj IVP SCH (08:41)
[2019-05-05] MEDS: Heparin 5000 units/ml inj SUBQ SCH (08:42)
[2019-05-05] MEDS: cefTRIAXone 1 GM in D5W 55 ML IVPB SCH (08:42)
--- NOTE | 2019-05-05 10:10 | Discharge Summary ---
Discharge Summary Hospital Course Date of Admission May 03, 2019 at 06:43 Date of Discharge Admitting Diagnosis copd exacerbation HPI Saqib Nj is a 68 year old male who was admitted on May 03, 2019 at 06:43 for Chronic Obstructive Pulmonary Disease Exacerbation Consultations pulmonary Hospital Course 68 year old male with history of COPD on home oxygen, lung CA admitted for COPD exacerbation. Viral vs. bacterial bronchitis IV solumedrol 60 mg q 6hr, tapered pe rclinical response, switch to po today IV ceftriaxone 1g q24hr (05/03-05/05), IV Azithromycin 500mg daily (05/03-), switch to PO on discharge. Augmentin and Azithromycin Duonebs Oxygen via nc Methadone 60mg daily - home dose pulmonology consult appreciated patient counselled regarding cocaine use Thrombocytopenia- Monitor Hyperglycemia- steroid induced, continue to monitor follow up with pcp, pulmonary and onc after discharge VTE ppx: Heparin subq GI ppx: PPI Disposition: Home Exam on discharge day: pleasant, eager to go home. lung: cta bl, ext: no edema, cvs s1s2. I spent 35 minutes on this encounter. >50% spent on counselling and care coordination. Time of note may not reflect time of encounter Discharge Medications New Medications: Amoxicillin/Potassium Clav 875-125* (Augmentin 875-125 Tablet*) 1 Each Tablet 1 TAB ORAL TWICE A DAY for 5 Days, #10 TAB 0 Refills Prednisone* (Prednisone*) 20 Mg Tablet 40 MG ORAL DAILY for 5 Days, #5 TAB Continued Medications: Albuterol Sulfate (Ventolin Hfa) 18 Gm Hfa.aer.ad 1 PUFF INH EVERY 6 HOURS PRN for Shortness of Breath, #18 GM 0 Refills (This prescription has been renewed) Methadone Hcl* (Methadone*) 10 Mg Tablet 60 MG ORAL DAILY, #3 TAB 0 Refills (This prescription has been renewed) Discharge Condition Upon Discharge: stable Discharge Disposition Patient was discharged to home Discharge Diagnoses: (1) Non-small cell lung cancer (NSCLC) (2) Methadone dependence (3) Dependence on cocaine-type drug (4) Thrombocytopenia Jacob Cohen M.D. May 05, 2019 10:10
[2019-05-05] MEDS ORDERED: AUGMENTIN 875-1 EAC1 ORAL (10:17)
[2019-05-05] MEDS ORDERED: PREDNISONE20 MG ORAL (10:17)
--- NOTE | 2019-05-05 11:25 | NUR ---
NURSE NOTES: Dr. Cohen ordered discharge today. sent a prescription by electronically to the [facility]. RN confirmed the pharmacy and spoke to Per but he could not find medications on the system. RN spoke to the pharmacist for verbal order medications for the patient. RN sent face sheet to the pharmacy and waiting to the medications will be delivered.
--- NOTE | 2019-05-05 11:38 | Pulmonology Progress Note ---
Assessment/Plan Problems: (1) Non-small cell lung cancer (NSCLC) (2) COPD exacerbation (3) Dependence on cocaine-type drug (4) Dyspnea (5) Methadone dependence Assessment/Plan Optimize pulmonary hygiene/mobilize as tolerated PRN O2 HHN's D/C SM, start Pred 40 and taper D/C CTz, switch Azithro to PO DVT Px: Hep SQ Abstain from smoking F/U with PMD, pulm and onc post discharge Subjective Allergies: Coded Allergies: No Known Allergies (Unverified , 05/03/19) Subjective AFVSS O2 needs stable eager to go home less cough less SOB no CP no FC Objective Last 24 Hour Vital Signs Date Time Temp Pulse Resp B/P (MAP) Pulse Ox O2 Delivery O2 Flow Rate FiO2 05/05/19 09:00 Nasal Cannula 2.0 05/05/19 08:00 98.0 71 18 124/68 (86) 96 05/05/19 07:00 77 18 99 Nasal Cannula 2.0 28 78 18 95 05/05/19 07:00 95 Nasal Cannula 2.0 28 05/05/19 04:00 97.3 73 19 122/78 (93) 97 05/05/19 03:35 75 18 99 Nasal Cannula 2.0 28 05/05/19 03:25 76 18 98 Nasal Cannula 2.0 28 05/05/19 00:00 97.5 74 19 144/73 (96) 99 05/04/19 23:33 72 18 98 Nasal Cannula 2.0 28 05/04/19 23:23 73 18 95 Nasal Cannula 2.0 28 05/04/19 21:00 Nasal Cannula 2.0 05/04/19 20:00 97.7 75 19 128/62 (84) 98 05/04/19 19:04 75 18 99 Nasal Cannula 2.0 28 05/04/19 18:54 71 18 94 Nasal Cannula 2.0 28 05/04/19 18:54 94 Nasal Cannula 2.0 28 05/04/19 16:00 97.7 83 21 122/58 (79) 99 05/04/19 15:13 72 20 99 Nasal Cannula 2.0 28 70 20 97 05/04/19 12:00 97.5 79 18 124/79 (94) 94 Intake and Output 05/04/19 05/05/19 19:00 07:00 Intake Total 1015 ml 755 ml Balance 1015 ml 755 ml Intake Oral 960 ml 480 ml IV Total 55 ml 275 ml # Voids 4 General Appearance: no acute distress, cachetic HEENT: normocephalic, atraumatic, anicteric, mucous membranes moist Respiratory/Chest: chest wall non-tender, lungs clear - but distant, no respiratory distress, no accessory muscle use Cardiovascular: normal peripheral pulses, normal rate, regular rhythm Abdomen: normal bowel sounds, soft, non tender, no organomegaly, non distended , no mass Extremities: no cyanosis, no clubbing, no edema Microbiology Date/Time Source Procedure Growth Status 05/03/19 06:10 Blood Blood Culture - Preliminary NO GROWTH AFTER 24 HOURS Resulted 05/03/19 06:00 Blood Blood Culture - Preliminary NO GROWTH AFTER 24 HOURS Resulted 05/03/19 06:45 Nasal Nares - Final Complete 05/03/19 06:45 Nasal Nares - Final Complete Current Medications Medications (Trade) Dose Ordered Sig/Katherine Route PRN Reason Start Time Stop Time Status Last Admin Dose Admin Albuterol/ Ipratropium (Albuterol/ Ipratropium) 3 ml Q4HRT HHN 05/03/19 19:00 05/08/19 10:59 05/05/19 07:26 Azithromycin 500 mg/Dextrose 275 ml @ 275 mls/hr Q24HRS IV 05/04/19 06:00 05/10/19 06:59 05/05/19 05:48 Ceftriaxone Sodium 1 gm/ Dextrose 55 ml @ 110 mls/hr Q24H IVPB 05/04/19 09:00 05/11/19 08:59 05/05/19 08:42 Heparin Sodium (Porcine) (Heparin 5000 units/ml) 5,000 units EVERY 12 HOURS SUBQ 05/03/19 21:00 06/02/19 08:59 05/04/19 20:21 Methadone HCl (Methadone HCl) 60 mg DAILY ORAL 05/05/19 09:00 05/12/19 08:59 05/05/19 08:41 Pantoprazole (Protonix) 40 mg DAILY ORAL 05/04/19 09:00 06/02/19 13:59 05/05/19 08:40 Derrek Mojica MD May 05, 2019 11:38
[2019-05-05 12:00] VITALS: BP 120/89
--- NOTE | 2019-05-05 12:33 | NUR ---
NURSE NOTES: patient discharged home with stable condition. alert. oriented. verbally responsive. no c/o pain at this time. RN provided dc packet and educated care at home. Patient received new medications from [facility], Amoxicillin and prednisone. Also home medication he brought upon admission. RN checked and counted belongings with patient and obtained sign. RN removed IV and ID band. patient dc with his own o2 tank. YULIYA rider assisted the patient to the lobby where his friend is waiting to pick him up.
[2019-05-06] MEDS ORDERED: Azithromycin 250mg tab ORAL SCH (09:00)
--- NOTE | 2019-05-06 11:29 | Cardiology Report ---
APPROVED REPORT EKG Measurement Heart [id number] Sinus bradycardia with marked sinus arrhythmia Possible Left atrial enlargement Rightward axis Septal infarct, age undetermined Abnormal ECG
== END 2019-05-05 12:31 | disposition home or self-care (01) | DRG 191 ==
LOC: EDBD 05:58 → EMR 06:15 → 2E 06:43 → EDBEDREQ 07:46 → 4E 17:39
DX: J44.1 Chronic obstructive pulmonary disease with (acute) exacerbation (principal); Z68.1 Body mass index [BMI] 19.9 or less, adult; F11.20 Opioid dependence, uncomplicated; E44.1 Mild protein-calorie malnutrition; F14.20 Cocaine dependence, uncomplicated; C34.91 Malignant neoplasm of unspecified part of right bronchus or lung; D47.3 Essential (hemorrhagic) thrombocythemia; Z99.81 Dependence on supplemental oxygen; Z87.891 Personal history of nicotine dependence; J40 Bronchitis, not specified as acute or chronic; R73.9 Hyperglycemia, unspecified; T38.0X5A Adverse effect of glucocorticoids and synthetic analogues, initial encounter
CPT/HCPCS: 36415; 36600; 71045; 80048; 80053; 82553; 82803; 83605; 83690; 83735; 83880; 84100; 84484; 85007; 85025; 86710; 87040; 93005; 94640; 94664; 96365; 96368; 96375; 99285; J7030; J7620